=== PATIENT | female | born 1950 | race Caucasian/White ===

== ENCOUNTER 2021-05-16 11:37 | Emergency (ER) | payer MEDICARE, OTHER, SELFPAY ==
[2021-05-16 12:36] VITALS: BP 110/65; PULSE 78; RESP 24; TEMP 36.6; O2SAT 91
--- NOTE | 2021-05-16 12:55 | XRR_ITS ---
PROCEDURE INFORMATION: Exam: XR Chest Exam date and time: 05/16/2021 12:55 PM Age: 70 years old Clinical indication: Cough and dyspnea; Prior surgery; Surgery date: 6+ months; Surgery type: Open heart and a monitor; Additional info: RAFFY Dean TECHNIQUE: Imaging protocol: XR of the chest. Views: 1 view. COMPARISON: No relevant prior studies available. FINDINGS: Tubes, catheters and devices: Loop recorder device overlies the lower left hemithorax. Lungs: There is consolidation at the left lung base. Hazy opacities are present at the right lung base. Pleural spaces: Unremarkable. No pleural effusion. No pneumothorax. Heart/Mediastinum: Unremarkable. No cardiomegaly. Bones/joints: There are posterior sternotomy changes and postoperative changes overlying the mediastinum. XR/XR chest 1V portable [id number] IMPRESSION: Consolidation at the left lung bases consistent with pneumonia. There are nonspecific hazy opacities at the right lung base as well.
--- NOTE | 2021-05-16 12:55 | ECG_ITS ---
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 Measurements Intervals [place] Rate: 73 P: 42 DE: 127 QRS: 35 QRSD: 106 T: 61 QT: 411 QTc: 454 Interpretive Statements SINUS RHYTHM POSSIBLE LEFT ATRIAL ENLARGEMENT [-0.1mV P-WAVE IN V1/V2] NONSPECIFIC ST & T-WAVE ABNORMALITY No previous ECG available for comparison Electronically Signed On 05-17-2021 17:40:26 CDT by Sarah Fuentes M.D. [id number]
--- NOTE | 2021-05-16 12:57 | W.ED.COVID ---
HPI - COVID General: Chief Complaint: COVID symptoms Stated Complaint: SOB Time Seen by Provider: 05/16/21 12:44 Source: patient Mode of arrival: ambulatory Limitations: no limitations Triage information: Has fever, cough or shortness of breath. No known COVID + exposure last 14 days History of Present Illness: HPI Narrative: Patient is a nice 70-year-old female presents to ED today with a complaint of COVID and shortness of breath. Patient tells me she began feeling ill 10 days ago with high fevers, body aches, chills. She was seen at the [facility] on 05/08 and diagnosed with bacterial sinusitis and placed on Bactrim. She states she obtained COVID testing at the [facility] on 05/11 and states results came back positive. Patient states most of her symptoms have seemed to improve however she is continuing to have shortness of breath that is worsening. She is having a nonproductive cough. PMH is significant for CAD and HTN. MD complaint: known COVID positive Prior covid testing: yes, results known COVID 19 common symptoms: positive fever(s), chills, non-productive cough, dyspnea, fatigue, body aches and nasal congestion; negative productive cough, headache(s), throat pain, nausea, vomiting or diarrhea COVID 19 other sytmptoms: positive requiring oxygen; negative chest pain Onset (ago): day(s) Severity: moderate Pertinent comorbid conditions: hypertension and heart disease Treatment prior to arrival: other (on abx for presumed sinus infection) COVID Results: No Data to Display Review of Systems Const: Reports: fever(s), chills, body aches and fatigue; Denies: change in weight, night sweats or diaphoresis Eyes: Denies: change in vision or blurry vision ENMT: Reports: nasal congestion; Denies: throat pain, odynophagia, ear or mastoid pain, post nasal drip or sinus pain Card: Reports: dyspnea on exertion; Denies: chest pain, palpitations, irregular heart rhythm, edema, swelling of feet/ankles, lightheadedness, syncope or pre-syncope Resp: Reports: dyspnea and non-productive cough; Denies: productive cough, wheezing, pain on inspiration, hemoptysis or chest congestion GI: Denies: abdominal pain, nausea, vomiting or diarrhea Musc: Denies: neck pain, back pain, extremity pain or joint pain Skin/Breast: Denies: rash Neuro: Denies: headache(s), numbness in extremities, weakness in extremities, sensory changes or dizziness PFSH ED PFSH: Medical History (Updated 05/16/21 @ 14:49 by YASMINE Lui) Acute bacterial sinusitis Physical Exam Const: COMMON NORMALS: no acute distress, average body habitus, patient oriented x3, no limitations, healthy appearing, alert and well nourished GENERAL APPEARANCE: cooperative ORIENTATION/CONSCIOUSNESS: Yes awake, Yes oriented to person, Yes oriented to place and Yes oriented to time HENMT: COMMON NORMALS: normocephalic and atraumatic HEAD & SCALP: normocephalic and atraumatic Resp: COMMON NORMALS: normal respiratory effort and clear to auscultation bilaterally EFFORT & INSPECTION: Yes able to speak in complete sentences (does get winded however ), No respiratory distress, No labored, No grunting, No stridor and No retractions AUSCULTATION: clear to auscultation bilaterally OTHER: deep inhalation triggers coughing Cardio: COMMON NORMALS: regular rate and regular rhythm RATE: regular rate RHYTHM: regular rhythm Extremity: COMMON NORMALS: normal to inspection Neuro: AN COMA SCALE: document GCS findings Shock coma scale eye opening: Spontaneous Shock coma scale verbal response: Orientated An coma scale motor response: Obey commands Shock coma scale total score: 15 COMMON NORMALS: patient oriented x3, moves all extremities, no focal motor deficits, no sensory deficits noted and gait normal SENSORIUM/ORIENTATION: Yes alert, Yes oriented to person, Yes oriented to place and Yes oriented to time Skin: COMMON NORMALS: no rashes or lesions noted GENERAL SKIN EXAM: no rashes or lesions noted Course Vital Signs: Vital signs: Vital Signs Temperature 97.9 F 05/16/21 12:36 Pulse Rate 73 05/16/21 13:30 Respiratory Rate 17 05/16/21 13:30 Blood Pressure 106/77 05/16/21 13:30 Pulse Oximetry 87 L 05/16/21 14:24 MDM - COVID MDM Narrative: Medical decision making narrative: Patient appears in no acute distress. She was satting at 91% on room air. She did qualify for 2L of home oxygen on her home O2 evaluation. CXR consistent with COVID-19 pneumonia. Labs are not overly concerning at this time. She will be treated with IV dexamethasone here and oral dexamethasone at home. She does not qualify for MCA based on oxygen requirement. She was also given home O2 sensor. Strict return to ED precautions given. Lab Data: Attestation: I reviewed the patient's lab results. Labs: Lab Results 05/16/21 05/16/21 Range/Units 13:40 13:40 WBC 7.7 (4.0-10.0) 10^3/ uL RBC 4.69 (4.1-5.3) 10^6/u L Hgb 15.2 (11.5-15.3) g/dL Hct 45.3 (37.0-47.0) % MCV 96.6 (81-99) fl MCH 32.4 (28.0-34.0) pg MCHC 33.6 (30.0-36.0) g/dL RDW 13.1 (12.1-15.1) % Plt Count 342 (130-400) 10^3/c mm MPV 9.3 (7.4-10.4) fL Neut % (Auto) 80.5 % Lymph % (Auto) 12.6 % Starke % (Auto) 4.9 % Eos % (Auto) 1.3 % Baso % (Auto) 0.3 % Neut # (Auto) 6.18 (1.8-7.7) 10^3/u L Lymph # (Auto) 1.0 (0.8-4.8) 10^3/u L Starke # (Auto) 0.4 (0.2-0.9) 10^3/u L Eos # (Auto) 0.1 (0.0-0.8) 10^3/u L Baso # (Auto) 0.0 (0.0-0.1) 10^3/u L Nucleated RBC % (a uto) 0 % Nucleated RBCs # 0.0 /100WBC Sodium 131 L (136-145) mmol/L Potassium 4.4 (3.5-5.1) mmol/L Chloride 96 L (98-107) mmol/L Carbon Dioxide 23 (22-29) mmol/L Anion Gap 16.4 (5-19) BUN 15 (8-23) mg/dL Creatinine 1.1 H (0.5-0.9) mg/dL GFR Calculation Not Reportable Glucose 95 (65-115) mg/dL Calculated Osmolal ity 273 L (285-295) mOsm/k g Calcium 9.5 (8.5-10.5) mg/dL Total Bilirubin 0.5 (0.15-1.2) mg/dL AST 41 H (0-32) U/L ALT 39 H (0-33) U/L Alkaline Phosphata se 85 (35-105) IU/L C-Reactive Protein 76.2 H (0.0-4.9) mg/L Total Protein 6.7 (6.6-8.7) g/dL Albumin 3.9 (3.5-5.2) g/dL Globulin 2.8 (1.3-4.6) g/dL Imaging Data: CXR: Radiologist's impression: [address] [address] XRay Report Signed Patient: Kimber Verde Unit #: [id number] : 1950 Age/Sex: 70 / F ADM Date: 05/16/21 Loc: ER Room/Bed: Attending Dr: Ordering Provider/Ordering MD: Rimma Garg Date of Service: 05/16/21 Procedure(s): XR chest 1V portable [id number] Accession Number(s): [id number] Report Number: [id number] PROCEDURE INFORMATION: Exam: XR Chest Exam date and time: 05/16/2021 12:55 PM Age: 70 years old Clinical indication: Cough and dyspnea; Prior surgery; Surgery date: 6+ months; Surgery type: Open heart and a monitor; Additional info: RAFFY Dean TECHNIQUE: Imaging protocol: XR of the chest. Views: 1 view. COMPARISON: No relevant prior studies available. FINDINGS: Tubes, catheters and devices: Loop recorder device overlies the lower left hemithorax. Lungs: There is consolidation at the left lung base. Hazy opacities are present at the right lung base. Pleural spaces: Unremarkable. No pleural effusion. No pneumothorax. Heart/Mediastinum: Unremarkable. No cardiomegaly. Bones/joints: There are posterior sternotomy changes and postoperative changes overlying the mediastinum. XR/XR chest 1V portable [id number] IMPRESSION: Consolidation at the left lung bases consistent with pneumonia. There are nonspecific hazy opacities at the right lung base as well. Dictated By: Ivelisse Owen MD Signed By: Ivelisse Owen MD Signed Date/Time: 05/16/211442 DD/ 144 COVID Results: No Data to Display Discharge Plan Discharge Patient Disposition: Home Clinical Impression: Suspected severe acute respiratory syndrome coronavirus 2 (SARS-CoV-2) infection Condition: Stable Prescriptions: New dexamethasone 6 mg tablet 6 mg PO DAILY Qty: 6 RF: 0 No Action aspirin 325 mg tablet 325 mg PO DAILY RF: 0 glucosamine sulfate [Glucosamine] 500 mg tablet 500 mg PO DAILY RF: 0 losartan 50 mg tablet 50 mg PO BID RF: 0 metoprolol succinate 50 mg tablet extended release 24 hr 50 mg PO DAILY RF: 0 fluoxetine 60 mg tablet 30 mg PO DAILY RF: 0 Zyrtec 10 mg capsule 10 mg PO DAILY PRNRF: 0 furosemide [Lasix] 20 mg tablet 20 mg PO DAILY RF: 0 sulfamethoxazole-trimethoprim [Bactrim DS] 800-160 mg tablet 1 tab PO BID 10 Days Qty: 20 RF: 0 Discharge Orders: Discharge ED (Routine); Ordered 05/16/21 Ordered By: Rimma Garg Other Ambulatory Orders: DME: Oxygen (Order) Location: None Selected Ordered By: Rimma Garg Activity Restrictions/Additional Instructions: As we have discussed we are sending you home with oxygen and an oxygen sensor. You need to return to the emergency department for worsening shortness of breath, chest pain, difficulty breathing, or if your oxygen sensor is reading below 92%. Coding Level of Care Code ED New Patient Escort for Alden Fwd Exam Detailed
[2021-05-16 13:30] VITALS: BP 106/77; PULSE 73; RESP 17; O2SAT 96
--- NOTE | 2021-05-16 13:30 | PC.NURSE ---
RAD AT BEDSIDE FOR CHEST XRAY
[2021-05-16 13:57] LABS: Basophils % 0.3 %; Eosinophils # 0.1 10^3/uL (0.0-0.8); Eosinophils % 1.3 %; Hematocrit 45.3 % (37.0-47.0); Hemoglobin 15.2 g/dL (11.5-15.3); Lymphocytes % 12.6 %; Mean Corpuscular HGB Conc 33.6 g/dL (30.0-36.0); Mean Corpuscular Hemoglobin 32.4 pg (28.0-34.0); Mean Corpuscular Volume 96.6 fl (81-99); Mean Platelet Volume 9.3 fL (7.4-10.4); Monocytes # 0.4 10^3/uL (0.2-0.9); Monocytes % 4.9 %; Neutrophils # 6.18 10^3/uL (1.8-7.7); Neutrophils % 80.5 %; Nucleated Red Blood Cells % 0 %; Platelet Count 342 10^3/cmm (130-400); Red Blood Count 4.69 10^6/uL (4.1-5.3); Red Cell Distribution Width 13.1 % (12.1-15.1); White Blood Count 7.7 10^3/uL (4.0-10.0)
[2021-05-16 14:24] VITALS: O2SAT 87; O2SAT 92
[2021-05-16 14:25] LABS: Alanine Aminotransferase 39 U/L (0-33); Albumin Level 3.9 g/dL (3.5-5.2); Alkaline Phosphatase 85 IU/L (35-105); Aspartate Amino Transferase 41 U/L (0-32); Blood Urea Nitrogen 15 mg/dL (8-23); C Reactive Protein 76.2 mg/L (0.0-4.9); Calcium 9.5 mg/dL (8.5-10.5); Carbon Dioxide 23 mmol/L (22-29); Chloride 96 mmol/L (98-107); Globulin 2.8 g/dL (1.3-4.6); Glucose 95 mg/dL (65-115); Osmolality Calculated 273 mOsm/kg (285-295); Sodium 131 mmol/L (136-145); Total Bilirubin 0.5 mg/dL (0.15-1.2); Total Protein 6.7 g/dL (6.6-8.7)
--- NOTE | 2021-05-16 14:41 | PC.NURSE ---
pt assisted to bathroom. o2 in use.
[2021-05-16 14:43] LABS: Anion Gap 16.4 (5-19); Potassium 4.4 mmol/L (3.5-5.1)
[2021-05-16 15:32] VITALS: BP 111/71; PULSE 81; RESP 15; O2SAT 95
[2021-05-16 17:40] VITALS: BP 112/59; PULSE 76; RESP 17; O2SAT 95
== END 2021-05-16 17:40 | disposition home or self-care (01) ==
PROVIDERS: Emergency Provider Physician Assistant
DX: Z20.822 Contact with and (suspected) exposure to COVID-19 (principal); Z79.82 Long term (current) use of aspirin
CPT/HCPCS: 71045; 80053; 85025; 86140; 93005; 99283

== ENCOUNTER → 2022-01-13 10:22 | Outpatient (BNVA) | payer MEDICARE, OTHER, SELFPAY | PROVIDERS: PCP Family Medicine; Visit Provider Internal Medicine Cardiovascular Disease | DX: I25.10 Atherosclerotic heart disease of native coronary artery without angina pectoris (principal); I11.0 Hypertensive heart disease with heart failure; I50.810 Right heart failure, unspecified; R06.00 Dyspnea, unspecified | CPT/HCPCS: 99214 ==

== ENCOUNTER → 2022-07-29 10:24 | Outpatient (BNVA) | payer MEDICARE, OTHER, SELFPAY | PROVIDERS: PCP Family Medicine; Visit Provider Nurse Practitioner Family | DX: I10 Essential (primary) hypertension (principal); R55 Syncope and collapse; I25.10 Atherosclerotic heart disease of native coronary artery without angina pectoris; Z95.818 Presence of other cardiac implants and grafts; Z95.1 Presence of aortocoronary bypass graft | CPT/HCPCS: 99214 ==

== ENCOUNTER 2022-09-08 08:34 | Outpatient (CLI) | payer MEDICARE, OTHER, SELFPAY ==
[2022-09-08 09:02] VITALS: BMI 27.3
--- NOTE | 2022-09-08 09:02 | ECG_ITS ---
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 Interpretive Statements NAME OF STUDY: LEXISCAN SESTAMIBI STRESS TEST INDICATION: Shortness of Breath; Chest Pain, PROCEDURE: At the baseline, the EKG revealed normal sinus rhythm with some nonspecific ST changes. The baseline heart was 61 bpm with a blood pressue of 121/81 mm of Hg Lexiscan was infused over a period of 20 seconds. A total of 0.4 milligrams of Lexiscan was infused. The stress phase was continued for a total of 5 minutes. Heart rate at the end of the stress phase was 67 bpm with a blood pressure 132/89 mm of Hg. The EKG at the peak infusion revealed no significant changes. Sestamibi was injected 20 seconds after the Lexiscan infusion. Heart rate at the end of the recovery phase was 64 bpm with a blood pressure of 130/71 mm of Hg. CONCLUSION: 1. No significant EKG changes with the LexiScan infusion 2. No LexiScan induced chest pain or cardiac arrhythmia 3. Normal blood pressure and heart rate response 4. Sestamibi/sestamibi perfusion scan pending; see separate report. Electronically Signed On 09-10-2022 11:53:31 TEXTILE CONVERTER by Sarah Fuentes M.D. [email or web address]
--- NOTE | 2022-09-08 09:03 | NMCV_ITS ---
NM corrina perf SPECT r/s* [id number] Kimber Verde Age: 72 Gender: F : 1950 Exam Date: 09/08/2022 10:00 Ordering Phys: Danitza Hartman Technologist: HANNAH Weiss Exam Location: [facility] Indications: ATHEROSCLEROTIC HEART DISEASE OF [place] CORONARY ARTERY STRESS TEST Please see separate stress test report in [facility] for full findings IMAGE PROTOCOL Rest/Stress 1 Lexiscan Day Radiopharmaceutical Dose (mCi) Administration Site Administered by Rest: Tc-99m 10.4 IV HANNAH Weiss Sestamibi Stress:Tc-99m 32.4 IV HANNAH Palencia Sestamibi Rest: 08-Sep-2022 60 Discovery 630 Stress: 08-Sep-2022 30 Discovery 630 0.4mg Lexiscan. Images obtained in supine and prone position. SPECT RESULTS Technical Quality: Excellent Raw Data Analysis: Normal Image Corrections: No attenuation or motion correction applied Summed Stress Score: 6 Summed Rest Score: 6 Summed Difference Score: 1 PERFUSION FINDINGS Multiple raised area of moderately diminished tracer uptake was noted in the apical anterior, apical lateral, apical inferior and LV apex. Slightly diminished tracer uptake also was noted in the mid inferolateral segment. Some reversibility was noted in the apical anterior region. FUNCTIONAL RESULTS (calculated via Gated SPECT) Stress Image LV EF (%): 73 Stress EDV (mL):92 TID: 0.88 Stress ESV (mL):25 FUNCTIONAL FINDINGS: Segmental wall motion analysis revealed no gross wall motion abnormalities. IMPRESSIONS 1. Myocardial perfusion imaging revealing small to moderate area of slightly decreased persistent tracer uptake in the apical and mid inferolateral regions with a subtle area of reversibility in the apical anterior region suggesting myocardial scarring with a subtle area of ischemia in the apical anterior region. 2. Normal LV ejection fraction 73%. 3. LV wall motion analysis revealing no gross wall motion abnormalities. 4. Normal LV volume. No similar previous studies are available for comparison. Dr Sarah Fuentes MD [facility] (Electronically Signed) Final Date: 08 September 2022 13:26 S
[2022-09-08 11:40] VITALS: BP 130/71; PULSE 64
[2022-09-08] MEDS: regadenoson 0.4 Mg/5 ml Syringe IVP (11:42)
== END 2022-09-08 08:35 | disposition home or self-care (01) ==
LOC: CDL 08:41
PROVIDERS: PCP Family Medicine; Visit Provider Nurse Practitioner Family
DX: R06.09 Other forms of dyspnea (principal); R07.9 Chest pain, unspecified; R06.02 Shortness of breath
CPT/HCPCS: 36415; 78452; 93017; 96374; A9500; J2785

== ENCOUNTER → 2022-10-13 11:24 | Outpatient (BNVA) | payer MEDICARE, OTHER, SELFPAY | PROVIDERS: PCP Family Medicine; Visit Provider Internal Medicine Cardiovascular Disease | DX: I11.0 Hypertensive heart disease with heart failure (principal); I50.810 Right heart failure, unspecified; I25.10 Atherosclerotic heart disease of native coronary artery without angina pectoris; R06.00 Dyspnea, unspecified; M19.90 Unspecified osteoarthritis, unspecified site; Z87.891 Personal history of nicotine dependence; Z95.1 Presence of aortocoronary bypass graft | CPT/HCPCS: 36415; 80053; 80061; 83721; 83735; 83880; 99214; Q3014 ==

== ENCOUNTER → 2022-10-25 12:35 | Outpatient (BNVA) | payer MEDICARE, OTHER, SELFPAY | PROVIDERS: PCP Family Medicine; Visit Provider Internal Medicine Cardiovascular Disease | DX: I10 Essential (primary) hypertension (principal); I50.810 Right heart failure, unspecified; R06.00 Dyspnea, unspecified; R07.9 Chest pain, unspecified | CPT/HCPCS: 80048; 83735; 83880 ==

== ENCOUNTER → 2022-12-28 13:39 | Outpatient (BNVA) | payer MEDICARE, OTHER, SELFPAY | PROVIDERS: PCP Family Medicine; Visit Provider Dermatology | DX: L82.0 Inflamed seborrheic keratosis (principal); L82.1 Other seborrheic keratosis; D18.01 Hemangioma of skin and subcutaneous tissue; L81.4 Other melanin hyperpigmentation | CPT/HCPCS: 17110; 99213 ==

== ENCOUNTER → 2023-03-15 16:02 | Outpatient (BNVA) | payer MEDICARE, OTHER, SELFPAY | PROVIDERS: PCP Family Medicine; Visit Provider Surgery | DX: R13.10 Dysphagia, unspecified (principal) | CPT/HCPCS: 99203 ==

== ENCOUNTER 2023-03-23 07:39 | Day surgery (SDC) | payer MEDICARE, OTHER, SELFPAY ==
[2023-03-22 10:58] VITALS: BMI 25.0
[2023-03-23 08:17] VITALS: BP 120/61; PULSE 62; RESP 16; TEMP 36.2; O2SAT 94
[2023-03-23] MEDS: sodium chloride 0.9% 1,000 ML 30 ML IV (08:50)
--- NOTE | 2023-03-23 10:07 | ANES.PREANE2 ---
Pre-Anesthetic Assessment Height/Weight: Height 1.7 m Weight 72.575 kg Temp Pulse Resp BP Pulse Ox O2 Del Method 97.1 F L 62 16 120/61 94 Room Air 03/23/23 08:17 03/23/23 08:17 03/23/23 08:17 03/23/23 08:17 03/23/23 08:17 03/23/23 08:17 Preop Diagnosis: dysphagia Operation Date: 03/23/23 09:15 Proposed Procedures p 02422 EGD w/ balloon dial R13.10(Not Applicable) - Reji Strickland DO Familial anesthetic complications: none Was Beta Aquilino taken within 24 hours: N/A Was Clonidine taken within 24 hours: N/A Last intake: Intake Last Liquid Date 03/22/23 Last Liquid Time 21:00 Last Solid Date 03/22/23 Last Solid Time 21:00 Last Intake: 21:00 Social No alcohol and No tobacco Exam alert, oriented x 3, clear to auscultation bilaterally and regular rate & rhythm Airway Submandibular: within normal limits Cervical ROM: within normal limits Mallampati: Class II Dentition: full Pulmonary Exertional Dyspnea CV/HEM Stable Angina (CABG 6yrs ago), Congestive Heart Failure and Hypertension Chronic Renal Insufficiency Hepatic None reported GI Gastroesophageal Reflux Disease Metabolic None reported Musc/skel Lower Back Pain and Osteoarthritis/DJD Neuropsych Anxiety and Depression Anesthetic Plan ASA status: 3 Anesthesia: MAC Risk of > 500 ml blood loss (7ml/kg in children): No Medications/Allergies Home Medications Medication Instructions Recorded Confirmed Last Taken Type multivitamin 1 cap PO DAILY 07/14/21 03/22/23 03/22/23 History cetirizine 10 mg capsule (Zyrtec) 10 mg PO DAILY PRN allergies 01/13/22 03/22/23 03/22/23 History cranberry fruit concentrate 250 mg 250 mg PO BID 01/13/22 03/22/23 03/22/23 History chewable tablet (Azo Cranberry) melatonin 10 mg capsule 5 mg PO .hs 01/13/22 03/22/23 03/22/23 History aspirin 81 mg tablet,delayed 81 mg PO DAILY 07/29/22 03/22/23 03/22/23 History release (Adult Aspirin Regimen) calcium carbonate 200 mg calcium 200 mg PO BID PRN Indigestion 10/13/22 03/22/2323 History (500 mg) chewable tablet (Tums) diclofenac sodium 1 % topical gel 2 g topical QID PRN Pain 10/13/22 03/22/23 03/22/23 History (Voltaren Arthritis Pain) ibuprofen 200 mg tablet 200 mg PO Q6H PRN Pain 10/13/22 03/22/23 03/22/23 History isosorbide mononitrate 30 mg 30 mg PO DAILY #30 tabs 10/13/22 03/22/23 03/23/23 06:00 Rx tablet,extended release 24 hr losartan 50 mg tablet 50 mg PO DAILY 10/13/22 03/22/23 03/22/23 History metoprolol succinate 50 mg 50 mg PO QPM 10/13/22 03/22/23 03/22/23 History tablet,extended release 24 hr nitroglycerin 0.4 mg sublingual 0.4 mg sublingual Q5M PRN chest 10/13/22 03/22/23 03/22/23 Rx tablet pain #25 tabs bupropion HCl 300 mg 24 hr tablet, 300 mg PO QAM #30 tabs 03/08/23 03/22/23 03/22/23 Rx extended release furosemide 40 mg tablet 60 mg PO DAILY 03/22/23 03/22/23 03/22/23 History potassium chloride 20 mEq 10 meq PO DAILY 03/22/23 03/22/23 03/22/23 History tablet,extended release Allergies Allergy/AdvReac Type Severity Reaction Status Date / Time amoxicillin [From Augmentin] Allergy Intermediate diarrhea Verified 03/23/23 08:13 clavulanic acid Allergy Intermediate diarrhea Verified 03/23/23 08:13 [From Augmentin] clindamycin Allergy Intermediate sick Verified 03/23/23 08:13 atorvastatin [From Lipitor] AdvReac Intermediate myalgias Verified 03/23/23 08:13 Current Medications Generic Name Dose Route Start Last Admin Trade Name Freq PRN Reason Stop Dose Admin Sodium Chloride 1,000 mls @ 30 mls/hr 03/23/23 07:45 03/23/23 08:50 Sodium Chloride 0.9% IV 03/24/23 07:44 30 mls/hr .Q24H ANTONY Administration PFSH Anesthesia Medical History Acute bacterial sinusitis Atherosclerosis of coronary artery CABG x3 in 2018. [facility] August 2020 80% stenosis origin of LAD, 80% proximal stenosis, mid LAD 70% stenosis, 40% mid OM1, proximal RCA 80% stenosis, patent SVG to RCA and second diagonal, patent arterial conduit to distal LAD. Depression Depression HTN (hypertension) NSVT (nonsustained ventricular tachycardia) recurrent syncope Osteoarthritis Right-sided heart failure Surgical History (Updated 03/15/23 @ 16:28 by Reji Strickland DO) Hx of cataract extraction Hx of colonoscopy 3 or 4 yrs ago Hx of eye surgery Hx of laparoscopic gastric banding released 3 yrs ago S/P ablation operation for arrhythmia SVT ablation in 2007 S/P CABG x 31 July 2018: ACUNA to LAD, SVG to ramus, SVG to RCA Social History Smoking and tobacco status: former smoker Data Anesthesia Cardiac Studies: Sestamibi Stress Test (Cardiology) 09/08/22 Cardiac Event Monitor 07/29/22
--- NOTE | 2023-03-23 10:17 | W.PM.OPSUD ---
Surgery/Procedure H&P Update DATE OF PROCEDURE: March 23, 2023 DATE H&P PERFORMED: 03/15/23 H&P UPDATE INFORMATION: I have reviewed H&P completed within last 30 days, I have examined patient prior to procedure and No changes to prior documentation PREOP DIAGNOSIS: dysphagia PLANNED PROCEDURE: Operation Date: 03/23/23 09:15 Proposed Procedures p 19735 EGD w/ balloon dial R13.10(Not Applicable) - Reji Strickland DO
[2023-03-23 10:44] VITALS: BP 109/78; PULSE 72; RESP 16; TEMP 36.5; O2SAT 96
--- NOTE | 2023-03-23 10:50 | ANE.PACU2 ---
Inpatient post-anesthesia follow up: Airway intact: Yes Vital signs: Temperature 97.4 F Pulse Rate 63 Respiratory Rate 16 Blood Pressure 117/64 Pulse Oximetry 95 Oxygen Delivery Me thod Room Air Oxygen Flow Rate Fraction of Inspir ed Oxygen Hydration adequate: Yes Nausea and vomiting: Yes Pain level: 1 Mental status: Baseline
[2023-03-23 10:54] VITALS: BP 117/64; PULSE 63; RESP 16; TEMP 36.3; O2SAT 95
== END 2023-03-23 11:05 | disposition home or self-care (01) ==
PROVIDERS: PCP Family Medicine; Visit Provider Surgery
DX: R13.10 Dysphagia, unspecified (principal); K29.80 Duodenitis without bleeding; B96.81 Helicobacter pylori [H. pylori] as the cause of diseases classified elsewhere; I13.0 Hypertensive heart and chronic kidney disease with heart failure and stage 1 through stage 4 chronic kidney disease, or unspecified chronic kidney disease; I50.9 Heart failure, unspecified; N18.9 Chronic kidney disease, unspecified; K21.9 Gastro-esophageal reflux disease without esophagitis; Z79.82 Long term (current) use of aspirin; Z95.1 Presence of aortocoronary bypass graft; Z87.891 Personal history of nicotine dependence; K29.50 Unspecified chronic gastritis without bleeding
CPT/HCPCS: 43239; 88305; 88342; J2704; J7030

== ENCOUNTER → 2023-04-13 13:12 | Outpatient (BNVA) | payer MEDICARE, OTHER, SELFPAY | PROVIDERS: PCP Family Medicine; Visit Provider Internal Medicine Cardiovascular Disease | DX: I25.10 Atherosclerotic heart disease of native coronary artery without angina pectoris (principal); Z95.818 Presence of other cardiac implants and grafts; Z98.890 Other specified postprocedural states; Z86.79 Personal history of other diseases of the circulatory system; I11.0 Hypertensive heart disease with heart failure; I50.810 Right heart failure, unspecified; Z87.891 Personal history of nicotine dependence | CPT/HCPCS: 99214 ==

== ENCOUNTER → 2023-04-27 15:06 | Outpatient (BNVA) | payer MEDICARE, OTHER, SELFPAY | PROVIDERS: PCP Family Medicine; Visit Provider Surgery | DX: Z09 Encounter for follow-up examination after completed treatment for conditions other than malignant neoplasm (principal) | CPT/HCPCS: 99212 ==

== ENCOUNTER 2023-05-27 13:46 | Outpatient (CLI) | payer MEDICARE, OTHER, SELFPAY ==
--- NOTE | 2023-05-27 13:54 | MM_ITS ---
WS: [id number] BILATERAL 3D TOMOSYNTHESIS DIGITAL SCREENING MAMMOGRAPHY WITH CAD CLINICAL INFORMATION: Z00.00 - Encounter for general adult medical examination ... HISTORY: Screening mammogram. No current complaints. COMPARISON: None. TECHNIQUE: Bilateral CC and MLO views. FINDINGS: Scattered fibroglandular densities bilaterally. No suspicious focal mass, asymmetry, calcifications, or architectural distortion. No evidence of malignancy. Vascular calcification. Loop recorder device LEFT chest IMPRESSION: MM/[place] [id number] BI-RADS: 2-Benign FOLLOW UP: 1 Year Follow-up Recommend return to annual screening mammography.
== END 2023-05-27 13:47 | disposition home or self-care (01) ==
PROVIDERS: PCP Family Medicine; Visit Provider Family Medicine
DX: Z12.31 Encounter for screening mammogram for malignant neoplasm of breast (principal)
CPT/HCPCS: 77063; 77067

== ENCOUNTER → 2023-07-04 11:02 | Outpatient (BNVA) | payer MEDICARE, OTHER, SELFPAY | PROVIDERS: PCP Family Medicine; Visit Provider Nurse Practitioner Family | DX: L82.1 Other seborrheic keratosis (principal); D18.01 Hemangioma of skin and subcutaneous tissue; L81.4 Other melanin hyperpigmentation; L82.0 Inflamed seborrheic keratosis | CPT/HCPCS: 17110; 99213 ==

== ENCOUNTER 2023-08-03 14:13 | Outpatient (CLI) | payer MEDICARE, OTHER, SELFPAY ==
--- NOTE | 2023-08-03 14:30 | MR_ITS ---
WS: [id number] MRI LUMBAR SPINE NONCONTRAST TECHNIQUE: Sagittal T1, T2 and STIR imaging. Axial T1 and T2 imaging. CLINICAL INFORMATION: back pain COMPARISON: None. FINDINGS: Thoracolumbar curve. No acute compression fractures. Multilevel disc bulging throughout the lumbar sp ine. T12-L1: Mild disc bulging. Mild facet arthropathy. Moderate LEFT foraminal narrowing. Spinal canal an d RIGHT foramen are patent. Mild facet arthropathy. L1-L2: Mild disc bulging with narrowing of the subarticular recess bilaterally. Moderate facet arthro reica. Moderate LEFT and mild RIGHT foraminal narrowing. L2-L3: Mild disc bulging with narrowing of the RIGHT greater than LEFT subarticular recess. Tiny RIGH T subarticular disc protrusion. Moderate facet arthropathy. Moderate RIGHT foraminal narrowing. L3-L4: Mild annular bulging. Impingement RIGHT subarticular recess and traversing RIGHT L4 nerve root . Moderate facet arthropathy. Mild to moderate RIGHT foraminal narrowing. LEFT foramen is patent. L4-L5: Mild annular bulging. Mild central canal stenosis. Impingement traversing L5 nerve roots. Mode rate to advanced facet arthropathy. Mild LEFT foraminal narrowing. RIGHT foramen is patent. L5-S1: Disc osteophytic ridging. Moderate to advanced facet arthropathy. Spinal canal is patent. Mode rate bilateral foraminal narrowing. Small LEFT renal cyst. Visualized pelvic bony structures: Normal. Paravertebral soft tissues: Normal. IMPRESSION: 1. Mild lumbar curve. No acute compression. No high-grade central canal stenosis. 2. Mild central canal stenosis L4-5 due to disc bulging in combination with facet arthropathy and li gamentum flavum hypertrophy. Mild LEFT L4-5 foraminal narrowing. 3. Disc osteophytic ridging L5-S1 with moderate bilateral lateral bony foraminal narrowing. 4. Advanced arthropathy L4-L5 and L5-S1. 5. Small RIGHT subarticular protrusion L2-3 impinges the traversing L3 nerve root in the subarticula r recess. Mild to moderate RIGHT L3-4 foraminal narrowing with a small RIGHT foraminal protrusion. 6. Moderate LEFT T12-L1 and L1-2 foraminal narrowing.
== END 2023-08-03 14:14 | disposition home or self-care (01) ==
LOC: RAD 14:14
PROVIDERS: PCP Family Medicine; Visit Provider Family Medicine
DX: G89.29 Other chronic pain (principal); M54.9 Dorsalgia, unspecified
CPT/HCPCS: 72148

== ENCOUNTER 2023-09-13 06:00 | Outpatient (RCR) | payer MEDICARE, OTHER, SELFPAY | END 2023-09-28 23:59 | disposition home or self-care (01) | LOC: WPT 06:00 | PROVIDERS: Visit Provider Family Medicine | DX: M54.9 Dorsalgia, unspecified (principal); G89.29 Other chronic pain | CPT/HCPCS: 97110; 97112; 97161; 97530 ==

== ENCOUNTER 2023-09-29 06:00 | Outpatient (RCR) | payer MEDICARE, OTHER, SELFPAY | END 2023-10-27 23:59 | disposition home or self-care (01) | LOC: WPT 06:00 | PROVIDERS: Visit Provider Family Medicine | DX: M54.9 Dorsalgia, unspecified (principal); G89.29 Other chronic pain | CPT/HCPCS: 97110; 97112; 97530 ==

== ENCOUNTER → 2023-10-27 09:39 | Outpatient (BNVA) | payer MEDICARE, OTHER, SELFPAY | PROVIDERS: Visit Provider Nurse Practitioner Family | DX: I11.0 Hypertensive heart disease with heart failure (principal); I50.810 Right heart failure, unspecified; I25.118 Atherosclerotic heart disease of native coronary artery with other forms of angina pectoris; Z87.891 Personal history of nicotine dependence | CPT/HCPCS: 36415; 80048; 83880; 99214 ==

== ENCOUNTER 2023-10-28 06:00 | Outpatient (RCR) | payer MEDICARE, OTHER, SELFPAY | END 2023-11-27 23:59 | disposition home or self-care (01) | LOC: WPT 06:00 | PROVIDERS: PCP Family Medicine; Visit Provider Family Medicine | DX: M54.9 Dorsalgia, unspecified (principal); G89.29 Other chronic pain | CPT/HCPCS: 97110; 97112; 97530 ==

== ENCOUNTER 2023-10-31 12:14 | Emergency (ER) | payer MEDICARE, OTHER, SELFPAY ==
--- NOTE | 2023-10-31 12:16 | XRR_ITS ---
PROCEDURE INFORMATION: Exam: XR Chest Exam date and time: 10/31/2023 12:45 PM Age: 73 years old Clinical indication: Pain; Angina pectoris; Additional info: Cp TECHNIQUE: Imaging protocol: Radiologic exam of the chest. Views: 1 view. COMPARISON: CR XR chest 1V portable [id number] 05/16/2021 1:25 PM FINDINGS: Lungs: Unremarkable. No consolidation. Pleural spaces: Unremarkable. No pleural effusion. No pneumothorax. Heart/Mediastinum: Unremarkable. No cardiomegaly. Bones/joints: Previous median sternotomy. Loop recorder in place. Osteopenia. Previous median sternotomy. XR/XR chest 1V portable [id number] IMPRESSION: No acute findings.
--- NOTE | 2023-10-31 12:17 | ECG_ITS ---
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 Measurements Intervals Rachel Rate: 93 P: 61 ID: [id number] QRS: 35 QRSD: 102 T: 119 QT: 340 QTc: 424 Interpretive Statements SINUS RHYTHM WITH OCCASIONAL VENTRICULAR PREMATURE COMPLEXES POSSIBLE LEFT ATRIAL ENLARGEMENT [-0.1mV P-WAVE IN V1/V2] NONSPECIFIC T-WAVE ABNORMALITY Compared to ECG 05/16/2021 13:53:44 Ventricular premature complex(es) now present T-wave abnormality still present Electronically Signed On 10-31-2023 13:28:49 SITE SAFETY MANAGER [address] Peraza M.D. [id number]
[2023-10-31 12:20] VITALS: BP 132/79; PULSE 92; RESP 16; TEMP 36.5; O2SAT 96; BMI 28.1
--- NOTE | 2023-10-31 12:38 | W.ED.CHESTPA ---
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 She denies any cough or fever Associated symptoms: Deny abdominal pain, dyspnea, fever(s), nausea or vomiting Review of Systems Const: Denies: fever(s) or chills ENMT: Denies: throat pain or dental pain Card: Reports: chest pain Resp: Denies: dyspnea GI: Denies: abdominal pain, nausea, vomiting or diarrhea Musc: Denies: neck pain or back pain Skin/Breast: Denies: rash Neuro: Denies: headache(s) PFSH ED PFSH: Medical History Herpes virus infection of oral mucosa Depression NSVT (nonsustained ventricular tachycardia) recurrent syncope Atherosclerosis of coronary artery CABG x3 in 2018. [facility] August 2020 80% stenosis origin of LAD, 80% proximal stenosis, mid LAD 70% stenosis, 40% mid OM1, proximal RCA 80% stenosis, patent SVG to RCA and second diagonal, patent arterial conduit to distal LAD. Depression Osteoarthritis HTN (hypertension) Right-sided heart failure Acute bacterial sinusitis Surgical History Hx of colonoscopy 3 or 4 yrs ago Hx of eye surgery Hx of cataract extraction Hx of laparoscopic gastric banding released 3 yrs ago S/P CABG x 31 July 2018: ACUNA to LAD, SVG to ramus, SVG to RCA S/P ablation operation for arrhythmia SVT ablation in 2007 Social History Smoking and tobacco/nicotine status: former use of tobacco/nicotine Physical Exam Const: COMMON NORMALS: no acute distress, patient oriented x3 and healthy appearing HENMT: COMMON NORMALS: normocephalic and atraumatic HEAD & SCALP: normocephalic and atraumatic Neck/C-Spine: COMMON NORMALS: full ROM and supple Chest: COMMONS NORMALS: normal inspection of the chest and normal palpation of entire chest wall Resp: COMMON NORMALS: normal respiratory effort, No retractions, No use of accessory muscles and clear to auscultation bilaterally AUSCULTATION: clear to auscultation bilaterally Cardio: COMMON NORMALS: regular rate, regular rhythm and No murmurs present (Cardio) RATE: regular rate RHYTHM: regular rhythm Extremity: COMMON NORMALS: normal to inspection and full ROM Neuro: COMMON NORMALS: patient oriented x3, moves all extremities and no focal motor deficits Psych: COMMON NORMALS: mental status grossly normal, Normal thought process present and cooperative THOUGHT PROCESS: Normal thought process present Skin: COMMON NORMALS: no rashes or lesions noted and no wounds GENERAL SKIN EXAM: no rashes or lesions noted Course Vital Signs: Vital signs: Vital Signs Temperature 97.7 F 10/31/23 12:20 Pulse Rate 81 10/31/23 15:01 Respiratory Rate 22 H 10/31/23 15:01 Blood Pressure 135/77 10/31/23 15:01 Pulse Oximetry 95 10/31/23 15:01 Oxygen Delivery Me thod Room Air 10/31/23 12:20 MDM - Chest Pain Medical Decision Making Patient presents for chest pain that has resolved here she has been pain-free here initial repeat troponins are negative EKGs are normal no signs of acute coronary syndrome she has no signs of PE or dissection she feels improved she says she would like to go home I feel she is stable for discharge informed her she needs to follow-up with her railroad dining car steward/stewardess likely get an outpatient stress test return to ER if her pain worsens she understands agrees to plan Medical Records I reviewed the patient's medical records. Lab Data I reviewed the patient's lab results. 10/31/23 12:40 10/31/23 12:40 Radiology Impressions Chest X-Ray 10/31/23 12:16 IMPRESSION: No acute findings. Laboratory Results WBC 6.87 10^3/uL (3.29-11.43) 10/31/23 12:40 RBC 4.45 10^6/uL (3.85-5.65) 10/31/23 12:40 Hgb 14.20 g/dL (11.27-16.99) 10/31/23 12:40 Hct 43.0 % (36-47) 10/31/23 12:40 MCV 96.6 fl (85-98) 10/31/23 12:40 MCH 31.9 pg (27-33) 10/31/23 12:40 MCHC 33.0 g/dL (30-55) 10/31/23 12:40 RDW 13.9 % (12.1-15.1) 10/31/23 12:40 Plt Count 231 10^3/cmm (157-399) 10/31/23 12:40 MPV 9.0 fL (7.4-10.4) 10/31/23 12:40 Neut % (Auto) 63.5 % 10/31/23 12:40 Lymph % (Auto) 25.3 % 10/31/23 12:40 [place] % (Auto) 7.0 % 10/31/23 12:40 Eos % (Auto) 3.2 % 10/31/23 12:40 Baso % (Auto) 0.7 % 10/31/23 12:40 Neut # (Auto) 4.36 10^3/uL (1.8-7.7) 10/31/23 12:40 Lymph # (Auto) 1.7 10^3/uL (0.8-4.8) 10/31/23 12:40 [place] # (Auto) 0.5 10^3/uL (0.2-0.9) 10/31/23 12:40 Eos # (Auto) 0.2 10^3/uL (0.0-0.8) 10/31/23 12:40 Baso # (Auto) 0.1 10^3/uL (0.0-0.1) 10/31/23 12:40 Nucleated RBC % (auto) 0 % 10/31/23 12:40 Nucleated RBCs # 0.0 /100WBC 10/31/23 12:40 PT 14.00 SECONDS (12.1-14.9) 10/31/23 12:40 INR 1.05 (0.8-1.2) 10/31/23 12:40 Sodium 140 mmol/L (136-145) 10/31/23 12:40 Potassium 4.4 mmol/L (3.5-5.1) 10/31/23 12:40 Chloride 104 mmol/L (98-107) 10/31/23 12:40 Carbon Dioxide 27 mmol/L (22-29) 10/31/23 12:40 Anion Gap 13.4 (5-19) 10/31/23 12:40 BUN 16 mg/dL (8-23) 10/31/23 12:40 Creatinine 1.0 mg/dL (0.5-0.9) H 10/31/23 12:40 GFR Calculation Not Reportable 10/31/23 12:40 Glucose 130 mg/dL (65-115) H 10/31/23 12:40 Calculated Osmolality 293 mOsm/kg (285-295) 10/31/23 12:40 Calcium 9.0 mg/dL (8.5-10.5) 10/31/23 12:40 Total Bilirubin 0.5 mg/dL (0.15-1.2) 10/31/23 12:40 AST 17 U/L (0-32) 10/31/23 12:40 ALT 18 U/L (0-33) 10/31/23 12:40 Alkaline Phosphatase 96 U/L (35-105) 10/31/23 12:40 Troponin T Baseline 11 ng/L (0-10) H 10/31/23 12:40 Troponin T 120 Minute 10.95 ng/L (0-10) H 10/31/23 14:29 Delta Troponin T -0.05 ABS# (0-10) L 10/31/23 14:29 Total Protein 6.6 g/dL (6.6-8.7) 10/31/23 12:40 Albumin 3.9 g/dL (3.5-5.2) 10/31/23 12:40 Globulin 2.7 g/dL (1.3-4.6) 10/31/23 12:40 Lipase 45 U/L (13-60) 10/31/23 12:40 All radiology interpretation(s) finalized by discharge EKG Data EKG 1: I personally reviewed and interpreted this EKG as follows: EKG interpretation date: 10/31/23 EKG interpretation time: 15:06 Interpretation: nsr hr [address] or t wave abnormalities qrs 93 qtc 407 Discharge Plan Discharge Patient Disposition: Home Clinical Impression: Chest pain Condition: Stable Prescriptions: No Action Zyrtec 10 mg capsule 10 mg PO DAILY PRN (Reason: allergies) melatonin 10 mg capsule 10 mg PO BEDTIME Azo Cranberry 250 mg tablet,chewable 250 mg PO BID diclofenac sodium [Voltaren Arthritis Pain] 1 % gel 2 g topical QID PRN (Reason: Pain) Rx Instructions: apply to single elbow, wrist or hand; for hand includes palm/fingers/back of hand nitroglycerin 0.4 mg tablet, sublingual 0.4 mg sublingual Q5M PRN (Reason: chest pain) Qty: 25 6RF Rx Instructions: do not exceed 3 doses per episode aspirin [Adult Aspirin Regimen] 81 mg tablet,delayed release (DR/EC) 81 mg PO DAILY isosorbide mononitrate 30 mg tablet extended release 24 hr 30 mg PO BID Qty: 180 3RF celecoxib [Celebrex] 200 mg capsule 200 mg PO DAILY Qty: 30 11RF losartan 50 mg tablet 50 mg PO DAILY Qty: 30 11RF Women's Multivitamin 18 mg iron-400 mcg-500 mg Tablet 1 tab PO DAILY furosemide 40 mg tablet 40 mg PO DAILY metoprolol succinate 50 mg tablet extended release 24 hr 50 mg PO DAILY potassium chloride 20 mEq tablet extended release 20 meq PO DAILY Discharge Orders: Discharge ED (Routine); Ordered 10/31/23 Ordered By: Marylu Yanez Referrals: Arturo Oleary MD [Primary Care Provider] - Discharge Diet: Advance as tolerated Discharge Activity: Resume usual activity Patient Instructions: Chest Pain (ED) Coding Level of Care Code ED Special Education Itinerant Teacher for Alden Mirza
[2023-10-31 12:50] LABS: Basophils # 0.1 10^3/uL (0.0-0.1); Basophils % 0.7 %; Eosinophils # 0.2 10^3/uL (0.0-0.8); Eosinophils % 3.2 %; Lymphocytes # 1.7 10^3/uL (0.8-4.8); Lymphocytes % 25.3 %; Mean Corpuscular Hemoglobin 31.9 pg (27-33); Mean Corpuscular Volume 96.6 fl (85-98); Monocytes # 0.5 10^3/uL (0.2-0.9); Neutrophils # 4.36 10^3/uL (1.8-7.7); Neutrophils % 63.5 %; Nucleated Red Blood Cells % 0 %; Platelet Count 231 10^3/cmm (157-399); Red Blood Count 4.45 10^6/uL (3.85-5.65); Red Cell Distribution Width 13.9 % (12.1-15.1); White Blood Count 6.87 10^3/uL (3.29-11.43)
[2023-10-31] MEDS: aspirin 81 mg Chew Tablet 324 MG PO (12:54)
[2023-10-31] MEDS: nitroglycerin 0.4 mg sublingual Tablet 0.400000000000000022 MG SUBLINGUAL (12:55)
[2023-10-31 12:58] VITALS: BP 134/82; PULSE 90; RESP 21; O2SAT 94
[2023-10-31 13:02] LABS: INR 1.05 (0.8-1.2)
[2023-10-31 13:08] LABS: Alanine Aminotransferase 18 U/L (0-33); Albumin Level 3.9 g/dL (3.5-5.2); Alkaline Phosphatase 96 U/L (35-105); Anion Gap 13.4 (5-19); Aspartate Amino Transferase 17 U/L (0-32); Blood Urea Nitrogen 16 mg/dL (8-23); Carbon Dioxide 27 mmol/L (22-29); Chloride 104 mmol/L (98-107); Creatinine Clr Calc Pharmacy 54.2446; Globulin 2.7 g/dL (1.3-4.6); Glucose 130 mg/dL (65-115); Lipase 45 U/L (13-60); Osmolality Calculated 293 mOsm/kg (285-295); Potassium 4.4 mmol/L (3.5-5.1); Sodium 140 mmol/L (136-145); Total Bilirubin 0.5 mg/dL (0.15-1.2); Total Protein 6.6 g/dL (6.6-8.7)
[2023-10-31 13:09] LABS: Troponin(5th) Baseline 11 ng/L (0-10)
[2023-10-31 13:58] VITALS: BP 115/57; PULSE 84; RESP 14; O2SAT 94
--- NOTE | 2023-10-31 14:16 | ECG_ITS ---
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 Measurements Intervals [place] Rate: 79 P: 54 MN: 141 QRS: 48 QRSD: 93 T: 81 QT: 372 QTc: 428 Interpretive Statements SINUS RHYTHM Compared to ECG 10/31/2023 12:17:45 Ventricular premature complex(es) no longer present T-wave abnormality no longer present Electronically Signed On 10-31-2023 16:16:16 DRAWER IN PLAIN LOOM by Rd Peraza M.D. [id number]
[2023-10-31 14:56] LABS: Troponin 5 2HR 10.95 ng/L (0-10)
[2023-10-31 15:00] LABS: Troponin 5 2HR Delta -0.05 ABS# (0-10)
[2023-10-31 15:01] VITALS: BP 135/77; PULSE 81; RESP 22; O2SAT 95
[2023-10-31 15:42] VITALS: BP 139/81; PULSE 83; RESP 22; O2SAT 94
== END 2023-10-31 15:43 | disposition home or self-care (01) ==
PROVIDERS: Emergency Provider Emergency Medicine; PCP Family Medicine
DX: R07.9 Chest pain, unspecified (principal); Z95.1 Presence of aortocoronary bypass graft; Z79.82 Long term (current) use of aspirin; I10 Essential (primary) hypertension; I25.10 Atherosclerotic heart disease of native coronary artery without angina pectoris; Z87.891 Personal history of nicotine dependence
CPT/HCPCS: 36415; 71045; 80053; 83690; 84484; 85025; 85610; 93005; 99285

== ENCOUNTER 2023-11-28 06:00 | Outpatient (RCR) | payer MEDICARE, OTHER, SELFPAY | END 2023-12-27 23:59 | disposition home or self-care (01) | LOC: WPT 06:00 | PROVIDERS: PCP Family Medicine; Visit Provider Family Medicine | DX: M54.9 Dorsalgia, unspecified (principal); G89.29 Other chronic pain | CPT/HCPCS: 97110; 97112; 97530 ==

== ENCOUNTER → 2023-12-12 14:15 | Outpatient (BNVA) | payer MEDICARE, OTHER, SELFPAY | PROVIDERS: PCP Family Medicine; Visit Provider Nurse Practitioner Family | DX: I11.0 Hypertensive heart disease with heart failure (principal); I50.810 Right heart failure, unspecified; I25.118 Atherosclerotic heart disease of native coronary artery with other forms of angina pectoris; Z95.1 Presence of aortocoronary bypass graft; Z87.891 Personal history of nicotine dependence | CPT/HCPCS: 99214 ==

== ENCOUNTER 2023-12-28 06:00 | Outpatient (RCR) | payer MEDICARE, SELFPAY | END 2024-01-27 23:59 | disposition home or self-care (01) | LOC: WPT 06:00 | PROVIDERS: PCP Family Medicine; Visit Provider Family Medicine | DX: M54.9 Dorsalgia, unspecified (principal); G89.29 Other chronic pain; L82.1 Other seborrheic keratosis; D18.01 Hemangioma of skin and subcutaneous tissue; L81.4 Other melanin hyperpigmentation | CPT/HCPCS: 17110; 97110; 97112; 97530; 99213 ==

== ENCOUNTER → 2024-03-05 11:39 | Outpatient (BNVA) | payer MEDICARE, SELFPAY | PROVIDERS: PCP Family Medicine; Visit Provider Nurse Practitioner Family | DX: J06.9 Acute upper respiratory infection, unspecified (principal); R06.00 Dyspnea, unspecified; U07.1 COVID-19; R05.9 Cough, unspecified | CPT/HCPCS: 71046; 87400; 87426 ==

== ENCOUNTER → 2024-03-21 11:07 | Outpatient (BNVA) | payer MEDICARE, SELFPAY | PROVIDERS: PCP Family Medicine; Visit Provider Internal Medicine Cardiovascular Disease | DX: I10 Essential (primary) hypertension (principal); R06.00 Dyspnea, unspecified; Z98.890 Other specified postprocedural states; Z86.79 Personal history of other diseases of the circulatory system; I25.118 Atherosclerotic heart disease of native coronary artery with other forms of angina pectoris; Z95.818 Presence of other cardiac implants and grafts; Z95.1 Presence of aortocoronary bypass graft | CPT/HCPCS: 99213 ==

== ENCOUNTER → 2024-10-08 16:02 | Outpatient (BNVA) | payer MEDICARE, SELFPAY | PROVIDERS: PCP Family Medicine; Visit Provider Internal Medicine Cardiovascular Disease | DX: I11.0 Hypertensive heart disease with heart failure (principal); I50.810 Right heart failure, unspecified; I25.118 Atherosclerotic heart disease of native coronary artery with other forms of angina pectoris; Z95.1 Presence of aortocoronary bypass graft; I49.3 Ventricular premature depolarization; E66.9 Obesity, unspecified; Z68.32 Body mass index [BMI] 32.0-32.9, adult | CPT/HCPCS: 99214 ==

== ENCOUNTER → 2024-10-23 09:56 | Outpatient (BNVA) | payer MEDICARE, OTHER, SELFPAY | PROVIDERS: PCP Family Medicine; Visit Provider Family Medicine | DX: I10 Essential (primary) hypertension (principal); Z00.00 Encounter for general adult medical examination without abnormal findings | CPT/HCPCS: 80053; 80061; 85025 ==

== ENCOUNTER 2024-12-12 13:20 | Outpatient (CLI) | payer MEDICARE, OTHER, SELFPAY ==
--- NOTE | 2024-12-12 14:00 | XR_ITS ---
WS: [id number] SCREENING DEXA SCAN [employer] CLINICAL INFORMATION: screening COMPARISON: None. FINDINGS: The L1-L4 bone mineral density measures 1.505 g/cm2. This corresponds to a T score score of 2.7 and Z score of 4.0. Left femoral neck bone mineral density measures 0.913 g/cm2. This corresponds to a T score of -0.7 and Z score of 0.7. Right femoral neck bone mineral density measures 0.917 g/cm2. This corresponds to a T score -0.7of and Z score of 0.7. Mean femoral neck bone mineral density measures 0.915 g/cm2. This corresponds to a T score of -0.7 and Z score of 0.7. XR/XR DEXA axial skeleton* [id number] IMPRESSION: Normal bone mineralization lumbar spine and femoral necks. Patient's FRAX calculated 10 year probability for major osteoporotic fracture i s 11.3% and osteoporotic hip fracture is 2.3%.
--- NOTE | 2024-12-12 14:40 | MM_ITS ---
WS: [id number] BILATERAL 3D TOMOSYNTHESIS DIGITAL SCREENING MAMMOGRAPHY WITH CAD CLINICAL INFORMATION: screening HISTORY: Screening mammogram. No current complaints. COMPARISON: 2022 TECHNIQUE: Bilateral CC and MLO views. FINDINGS: Scattered fibroglandular densities bilaterally. No suspicious focal mass, asymmetry, calcifications, or architectural distortion. No evidence of malignancy. Vascular calcification. Loop recorder. MM/MM scr BI tomosynthesis [id number] IMPRESSION: DENSITY: There are scattered areas of fibroglandular density. BI-RADS: 2 - Benign. FOLLOW UP: 1 Year Follow-up Recommend return to annual screening mammography.
== END 2024-12-12 13:21 | disposition home or self-care (01) ==
PROVIDERS: PCP Family Medicine; Visit Provider Family Medicine
DX: Z12.31 Encounter for screening mammogram for malignant neoplasm of breast (principal); Z00.00 Encounter for general adult medical examination without abnormal findings; R92.323 Mammographic fibroglandular density, bilateral breasts; R92.1 Mammographic calcification found on diagnostic imaging of breast; Z95.818 Presence of other cardiac implants and grafts
CPT/HCPCS: 77063; 77067; 77080